=== PATIENT | female | born 1990 | race Caucasian/White ===

== ENCOUNTER 2024-04-29 06:13 | Inpatient (IN) | payer OTHER ==
[2024-04-29 07:06] VITALS: BMI 27.6
[2024-04-29] MEDS: Oxytocin 30 units/NS 500 ML 500 ML IV SCH ×2 (07:49→17:43)
[2024-04-29] MEDS: hydrALAZINE 20 MG/ML VIAL SLOW IVP PRN (07:53)
[2024-04-29] MEDS ORDERED: Lidocaine 1% (PF) 30 ML VIAL SC PRN (08:19)
[2024-04-29] MEDS ORDERED: HYDROcodone/Acetaminophen 5/325 mg Tablet PO PRN ×2 (08:19→19:59)
[2024-04-29] MEDS ORDERED: Diphenoxylate HCl/Atropine Tablet PO PRN (08:19)
[2024-04-29] MEDS ORDERED: Tranexamic Acid 1,000 MG/10 ML VIAL IVP PRN (08:19)
[2024-04-29] MEDS ORDERED: fentaNYL 50 mcg/mL 1 mL Vial SLOW IVP PRN (08:19)
[2024-04-29] MEDS ORDERED: Acetaminophen 500 MG TAB PO PRN (08:19)
[2024-04-29] MEDS ORDERED: Ondansetron PF 4 MG/2 ML Vial IVP PRN ×2 (08:19→13:15)
[2024-04-29] MEDS ORDERED: Ibuprofen 800 MG TAB PO PRN (08:19)
[2024-04-29] MEDS ORDERED: Misoprostol 200 MCG TAB PR PRN (08:19)
[2024-04-29] MEDS ORDERED: Promethazine HCl 25 MG/ML VIAL IM PRN ×2 (08:19→13:15)
[2024-04-29] MEDS ORDERED: Carboprost 250 MCG/ML AMP IM PRN (08:19)
[2024-04-29 09:34] LABS: Hematocrit 36.4 % (34.9-44.5); Hemoglobin 12.8 g/dL (12.0-15.5); Mean Corpuscular HGB CONC 35.2 g/dL (32.0-36.0); Mean Corpuscular Hemoglobin 31.1 pg (27.0-33.0); Mean Corpuscular Volume 88.3 fL (81.6-98.3); Mean Platelet Volume 12.4 fL (7.4-10.4); Platelet Count 211 10x3/uL (150-450); RBC Distribution Width 12.7 % (11.5-14.5); Red Blood Cell (RBC) Count 4.12 10x6/uL (3.90-5.03); White Blood Cell (WBC) Count 7.5 10x3/uL (3.5-10.5)
[2024-04-29 09:41] LABS: ALT (SGPT) 54 U/L (8-55); AST (SGOT) 33 U/L (5-34); Alkaline Phosphatase 137 U/L (40-110); Anion Gap 15 mmol/L (10-20); BUN (Urea Nitrogen) 9 mg/dL (7.0-18.7); Bilirubin, Total 0.4 mg/dL (0.2-1.2); Calc. Creatinine Clearance 168 mL/min (70-130); Calcium 8.7 mg/dL (7.8-10.44); Carbon Dioxide 19 mmol/L (22-29); Chloride 106 mmol/L (98-107); Estimated GFR 121; Globulin 2.9 g/dL (2.4-3.5); Glucose 82 mg/dL (70-105); Potassium 3.9 mmol/L (3.5-5.1); Protein, Total 5.9 g/dL (6.0-8.3); Sodium 136 mmol/L (136-145)
[2024-04-29 09:58] LABS: Syphilis Antibody Nonreactive (Nonreactive); Syphilis Antibody Index 0.06 S/CO (<1.00 Non-Reactive)
[2024-04-29 10:00] LABS: HBsAg Index 0.17 S/CO (0-0.99); Hep B Surf Ag - L&D Non-Reactive S/CO (NonReactive)
[2024-04-29] MEDS: fentaNYL/Ropivacaine Epidural 100 ML ONE (12:54)
[2024-04-29] MEDS: Oxytocin 30 units/NS 500 ML 500 ML ONE (12:55)
[2024-04-29] MEDS ORDERED: Communication Order-Pharmacy FS SCH (13:15)
[2024-04-29] MEDS ORDERED: ePHEDrine Sulfate 50 MG/10 ML VIAL SLOW IVP PRN (13:15)
[2024-04-29] MEDS ORDERED: fentaNYL 2 mcg/Ropivacaine 0.2% Epidural 100 ML CADD EPIDURAL SCH (13:15)
[2024-04-29] MEDS ORDERED: diphenhydrAMINE 50 MG/ML VIAL IVP PRN (13:15)
[2024-04-29] MEDS ORDERED: Moisturizing Cream (Eucerin) 113 GM JAR TOP PRN (13:15)
[2024-04-29] MEDS ORDERED: Lactated Ringer's 500 ML IV PRN (13:15)
[2024-04-29] MEDS ORDERED: Acetaminophen 325 MG TAB PO PRN (13:15)
[2024-04-29] MEDS ORDERED: Naloxone HCl 0.4 mg/ml Vial IVP PRN ×2 (13:15)
[2024-04-29] MEDS: hydrALAZINE 20 MG/ML VIAL ONE (14:31)
[2024-04-29] MEDS ORDERED: Bisacodyl 10 MG SUPP PR PRN (19:59)
[2024-04-29] MEDS ORDERED: Milk Of Magnesia 30 ML UDCUP PO PRN (19:59)
[2024-04-29] MEDS ORDERED: hydrALAZINE 20 MG/ML VIAL SLOW IVP PRN (19:59)
[2024-04-29] MEDS ORDERED: Boostrix 0.5 ML (Tdap) VIAL (>/=7 yrs of age) IM ONE (19:59)
[2024-04-29] MEDS: Docusate 100 MG CAP PO SCH (21:48)
[2024-04-29] MEDS: Ibuprofen 800 MG TAB PO SCH (21:48)
[2024-04-29] MEDS: Labetalol HCl 200 MG TAB PO SCH (21:48)
[2024-04-29] MEDS: Benzocaine-Menthol 82.5 ML CAN TOP PRN (21:52)
[2024-04-30 05:19] LABS: Hematocrit 29.9 % (34.9-44.5); Hemoglobin 10.6 g/dL (12.0-15.5)
[2024-04-30] MEDS: Ferrous Sulfate 325 MG TAB PO SCH (08:00)
[2024-04-30 17:15] VITALS: BP 149/90; TEMP 98.1
== END 2024-04-30 19:25 | disposition home or self-care (01) | DRG 807 ==
LOC: CSHLD 06:13 → CSHPP 19:26
PROVIDERS: ADMIT Family Medicine; ATTEND Family Medicine
PROC: 10D07Z6 Extraction of Products of Conception, Vacuum, Via Natural or Artificial Opening (ICD-10-PCS; principal; 2024-04-29)
PROC: 0KQM0ZZ Repair Perineum Muscle, Open Approach (ICD-10-PCS; 2024-04-29)
DX: O10.92 Unspecified pre-existing hypertension complicating childbirth (principal); Z37.0 Single live birth; Z3A.38 38 weeks gestation of pregnancy; Z79.899 Other long term (current) drug therapy; O70.1 Second degree perineal laceration during delivery; O76 Abnormality in fetal heart rate and rhythm complicating labor and delivery
CPT/HCPCS: 36415; 51702; 80053; 84156; 85014; 85018; 85027; 86780; 86850; 86900; 86901; 87340; J0360; J2590